=== PATIENT | male | born 1940 | race Caucasian/White ===

== ENCOUNTER 2017-04-15 14:51 | Emergency (ER) | payer OTHER ==
[~2017-04-15] VITALS: Ht 182.9 cm; Wt 108.1 kg
[2017-04-15 15:59] LABS: HEMATOCRIT 39.9 % (38.0-50.0); MCHC 33.3 G/DL (30.0-36.0); MCV 96.1 FL (86-99); MEAN PLAT.VOLUME 10.1 uM^3 (9.0-12.4); PLATELET COUNT 165 K/uL (156-360); RBC DIS.WIDTH-CV 12.6 % (11.8-14.6); RBC DIS.WIDTH-SD 44.5 % (39-53); RED BLOOD COUNT 4.15 M/uL (4.00-5.50); WHITE BLOOD COUNT 6.3 K/uL (4.1-10.2)
[2017-04-15 16:09] LABS: CHLORIDE 107 mEq/L (99-109); POTASSIUM 4.3 mEq/L (3.7-5.4); SODIUM 142 mEq/L (136-147)
[2017-04-15 16:11] LABS: GLUCOSE 216 mg/dL (70-99)
[2017-04-15 16:12] LABS: ANION GAP 11 MEQ/L (2-14)
[2017-04-15 16:14] LABS: GFR ESTIMATE (CALCULATED) 57 mL/min/
[2017-04-15 16:15] LABS: UREA NITROGEN (BUN) 20 mg/dL (9-23)
[2017-04-15 17:03] LABS: INTER. NORMALIZED RATIO 1.1; PROTHROMBIN TIME 12.3 SEC (10.2-12.9)
[2017-04-15 17:06] LABS: PTT 28.4 SEC (25-37)
[2017-04-15 17:07] LABS: TOTAL BILIRUBIN 0.6 mg/dL (0.0-1.0)
[2017-04-15 17:08] LABS: ALKALINE PHOSPHATASE 62 IU/L (3-129)
[2017-04-15 17:10] LABS: DIRECT BILIRUBIN 0.3 mg/dL (0.0-0.3)
[2017-04-15 17:18] LABS: TROP-I INTERPRETATION NEGATIVE; TROPONIN-I 0.02 ng/mL (0.0-0.30)
[2017-04-15 18:24] LABS: ADD MIUA? YES; BILIRUBIN NEGATIVE; BLOOD NEGATIVE; COLOR YELLOW ((YELLOW)); GLUCOSE (STRIP) NEGATIVE; KETONES NEGATIVE; LEUKOCYTES TRACE; NITRITE NEGATIVE; PROTEIN (STRIP) 100; SPECIFIC GRAVITY 1.023 (1.000-1.030)
[2017-04-15 18:28] LABS: BACTERIA RARE /HPF; EPITHELIAL CELLS NONE SEEN /HPF; HYALINE CASTS 0-5 /LPF; MUCUS TRACE /LPF; RED BLOOD CELLS 0-5 /HPF (0-5); UCUL ADDED? YES
[2017-04-15 20:26] VITALS: BP 135/69
== END 2017-04-15 20:27 | disposition home or self-care (01) ==
LOC: EME 14:51
PROVIDERS: Emergency Medicine
DX: R53.1 Weakness (principal); E11.621 Type 2 diabetes mellitus with foot ulcer; L97.519 Non-pressure chronic ulcer of other part of right foot with unspecified severity; I10 Essential (primary) hypertension; Z86.73 Personal history of transient ischemic attack (TIA), and cerebral infarction without residual deficits
CPT/HCPCS: 70450; 73630; 80048; 80076; 81003; 83605; 83880; 84484; 85027; 85610; 85730; 87086; 93005; 99281; 99285; J7030

== ENCOUNTER 2017-12-23 19:26 | Observation (INO) | payer OTHER ==
[~2017-12-23] VITALS: Ht 188 cm; Wt 114.3 kg
[2017-12-23 21:07] LABS: HEMATOCRIT 41.3 % (38.0-50.0); HEMOGLOBIN 14.2 G/DL (12.5-16.6); MCH 32.9 PG (29.0-34.0); MCHC 34.4 G/DL (30.0-36.0); MCV 95.8 FL (86-99); PLATELET COUNT 124 K/uL (156-360); RBC DIS.WIDTH-CV 12.3 % (11.8-14.6); RBC DIS.WIDTH-SD 43.6 % (39-53); RED BLOOD COUNT 4.31 M/uL (4.00-5.50); WHITE BLOOD COUNT 5.9 K/uL (4.1-10.2)
[2017-12-23 21:19] LABS: PTT 29.9 SEC (25-37)
[2017-12-23 21:22] LABS: ALBUMIN 4.1 g/dL (3.2-4.8); CHLORIDE 109 mEq/L (99-109); POTASSIUM 4.7 mEq/L (3.7-5.4); SODIUM 141 mEq/L (136-147)
[2017-12-23 21:24] LABS: GLUCOSE 205 mg/dL (70-99); TOTAL PROTEIN 6.5 g/dL (6.4-8.3)
[2017-12-23 21:26] LABS: TOTAL BILIRUBIN 0.5 mg/dL (0.0-1.0)
[2017-12-23 21:28] LABS: ALKALINE PHOSPHATASE 49 IU/L (3-129); GFR ESTIMATE (CALCULATED) > 59 mL/min/ (58.99-99999)
[2017-12-23 21:29] LABS: UREA NITROGEN (BUN) 26 mg/dL (9-23)
[2017-12-23 21:30] LABS: AST (GOT) 12 IU/L (2-34)
[2017-12-23 21:31] LABS: ALT (GPT) 14 IU/L (3-49); LIPASE 20 U/L (1.0-51.0)
[2017-12-23 21:34] LABS: TROP-I INTERPRETATION NEGATIVE; TROPONIN-I 0.03 ng/mL (0.0-0.30)
[2017-12-23] MEDS ORDERED: LO-DOSE ASPIRIN81 M2 PO (22:03)
[2017-12-23] MEDS ORDERED: NOVOLIN N100 UNITS/ SC (22:04)
[2017-12-23] MEDS ORDERED: VITAMIN D22000 UNIT PO (22:05)
[2017-12-24 00:18] LABS: D-DIMER ELISA < 150.00 ng/mLDDU (<230)
[2017-12-24 00:40] VITALS: BP 154/70
[2017-12-24 03:58] VITALS: BP 146/77
[2017-12-24 04:58] LABS: HEMATOCRIT 41.8 % (38.0-50.0); HEMOGLOBIN 13.7 G/DL (12.5-16.6); MCH 31.9 PG (29.0-34.0); MCHC 32.8 G/DL (30.0-36.0); MCV 97.4 FL (86-99); PLATELET COUNT 116 K/uL (156-360); RBC DIS.WIDTH-CV 12.6 % (11.8-14.6); RBC DIS.WIDTH-SD 45.1 % (39-53); RED BLOOD COUNT 4.29 M/uL (4.00-5.50)
[2017-12-24 05:21] LABS: TROP-I INTERPRETATION NEGATIVE; TROPONIN-I 0.02 ng/mL (0.0-0.30)
[2017-12-24 05:24] LABS: CHLORIDE 107 MEQ/L (99-109); CREATININE 0.8 MG/DL (0.6-1.3); GFR ESTIMATE (CALCULATED) > 59 mL/min/ (58.99-99999); GLUCOSE 178 mg/dL (70-99); POTASSIUM 3.9 MEQ/L (3.7-5.4); SODIUM 142 MEQ/L (136-147); UREA NITROGEN (BUN) 21 mg/dL (9-23)
[2017-12-24 08:58] VITALS: BP 152/71
[2017-12-24 10:02] LABS: TROP-I INTERPRETATION NEGATIVE; TROPONIN-I 0.02 ng/mL (0.0-0.30)
== END 2017-12-24 18:06 | disposition home or self-care (01) ==
LOC: EME → EDBD 19:26 → EDOF 22:33 → 4SOUTH 22:33 → EDOF 22:33 → ENRESERV 22:37 → 4SOUTH 12-24 00:36
PROVIDERS: Emergency Medicine; Hospitalist; Nurse Practitioner Family
DX: R07.9 Chest pain, unspecified (principal); F41.9 Anxiety disorder, unspecified; I44.0 Atrioventricular block, first degree; I45.2 Bifascicular block; E11.9 Type 2 diabetes mellitus without complications; I10 Essential (primary) hypertension
CPT/HCPCS: 71045; 80048; 80053; 82948; 83690; 84484; 85027; 85379; 85610; 85730; 86850; 86900; 86901; 93005; 93306; 99281; 99285; G0378; J1815